=== PATIENT | female | born 1985 | race Caucasian/White ===

== ENCOUNTER → 2024-08-02 | Day surgery (SDC) | payer MEDICARE, OTHER ==
[2024-07-31 15:29] VITALS: BMI 37.5
[~2024-08-02] MED LIST: LIDOCAINE 1% (10MG/ML) FOR IV START INTRADERMA PRN; PROPOFOL 10 MG/ML 20 ML VIAL IV ONE
[2024-08-02 13:00] VITALS: TEMP 96.5
[2024-08-02] MEDS: IV FLUID CONTINUATION 1,000 ML IV ONE ×2 (13:00→13:51)
[2024-08-02] MEDS: LACTATED RINGERS 1,000 ML IV SCH (13:01)
--- NOTE | 2024-08-02 14:19 | P.PCN ---
Date of Procedure: 08/02/24 Procedure(s) Performed: BRIEF HISTORY: Patient is a 38-year-old pleasant white female scheduled for an elective colonoscopy as a part of evaluation of intermittent rectal eating and diarrhea. She went to the emergency room and we discussed getting a CT of the abdomen pelvis done and that showed thickening of the left colon. PROCEDURE PERFORMED: Colonoscopy. PREOPERATIVE DIAGNOSIS: Rectal bleeding and diarrhea. IV sedation per Anesthesia. PROCEDURE: After informed consent was obtained, the patient, was brought into the endoscopy unit. IV sedation was administered by Anesthesia under continuous monitoring. Digital rectal examination was normal. Initially the Olympus CF-160 flexible video colonoscope was then inserted in the rectum, gradually advanced into the cecum without any difficulty. Careful examination was performed as the scope was gradually being withdrawn. Ileocecal valve and the appendiceal orifice were visualized and appeared normal. Prep was excellent. Mucosa of the cecum, ascending colon, transverse colon, descending colon, sigmoid colon, and rectum appeared normal. Retroflexion was performed in the rectum and no lesions were seen. The patient tolerated the procedure well. IMPRESSION: Normal-appearing colon from rectum to cecum with no evidence of colorectal neoplasia. RECOMMENDATIONS: Findings of this examination were discussed with the patient as well as her family. She was advised to be on a high-fiber diet and take fiber supplements on a regular basis..
[2024-08-02 14:54] VITALS: BP 123/82; PULSE 95; RESP 18
== END ==
LOC: ORWHC2ENDO 11:28 → EEVIPCON 11:28
PROVIDERS: ATTEND Internal Medicine Gastroenterology
DX: K62.5 Hemorrhage of anus and rectum (principal)
CPT/HCPCS: 84703; 45378; J2704